=== PATIENT | male | born 1995 | race Caucasian/White ===

== ENCOUNTER 2018-02-04 20:04 | Emergency (ER) | payer OTHER ==
[~2018-02-04] VITALS: Ht 180.3 cm; Wt 77.1 kg
[2018-02-04 20:10] VITALS: BP 135/86
[2018-02-04] MEDS ORDERED: MUCINEX100 MG PO (20:21)
[2018-02-04] MEDS ORDERED: CLARITIN10 MG PO (20:21)
[2018-02-04] MEDS ORDERED: ZPAK PO (20:21)
[2018-02-04] MEDS ORDERED: PROAIR HFA8.5 GM INH (20:29)
== END 2018-02-04 20:30 | disposition home or self-care (01) ==
LOC: M.ERS 20:04
DX: R09.81 Nasal congestion (principal); F17.210 Nicotine dependence, cigarettes, uncomplicated

== ENCOUNTER 2018-03-11 06:00 | Emergency (ER) | payer OTHER ==
[~2018-03-11] VITALS: Ht 180.3 cm; Wt 81.7 kg
[~2018-03-11 06:00] MED LIST: CLARITIN10 MG PO; MUCINEX100 MG PO; PROAIR HFA8.5 GM INH; ZPAK PO
[2018-03-11] MEDS ORDERED: MEDROL DOSPAK21 TA1 PO (08:00)
[2018-03-11 08:21] VITALS: BP 112/58
== END 2018-03-11 08:27 | disposition home or self-care (01) ==
LOC: M.ERS 06:00
DX: L50.9 Urticaria, unspecified (principal); T78.40XA Allergy, unspecified, initial encounter; X58.XXXA Exposure to other specified factors, initial encounter

== ENCOUNTER 2018-08-01 18:19 | Emergency (ER) | payer OTHER ==
[~2018-08-01] VITALS: Ht 180.3 cm; Wt 86.2 kg
[~2018-08-01 18:19] MED LIST changes: +MEDROL DOSPAK21 TA1 PO
[2018-08-01 20:18] VITALS: BP 116/50
== END 2018-08-01 20:00 | disposition home or self-care (01) ==
LOC: M.ERS 18:19
DX: M25.531 Pain in right wrist (principal)